=== PATIENT | female | born 1955 | race Caucasian/White ===

== ENCOUNTER 2020-09-01 00:35 | Emergency (ER) | payer OTHER ==
[~2020-09-01 00:35] MED LIST: ABILIFY10 MG PO; ACETAMINOPHEN325 MG PO; ALDACTONE25 MG PO; AMARYL 2MG TABLE2 MG PO; ASPIRIN EC81 M1 PO; ATORVASTATIN CA20 MG PO; BREO ELLIPTA 11 EACH INH; CARVEDILOL6.25 MG PO; CITALOPRAM 40MG40 MG PO; COZAAR 25MG TAB25 MG PO; CYMBALTA 30MG C30 MG PO; FEOSOL325 MG PO; GLIMEPIRIDE4 MG PO; GLUCAGON EMERGEN1 M1 IM; HCTZ12.5 MG PO; IBUPROFEN800 MG PO; LAMOTRIGINE150 MG PO; LINZESS145 MCG PO; MEDROL4 MG PO; MELATONIN5 M2 PO; METFORMIN HCL1000 MG PO; METHADONE10 MG PO; NEURONTIN100 MG PO; NITROSTAT0.4 MG SL; NORVASC 5MG TABL5 MG PO; PEPCID AC20 M1 PO; PERCOCET 5-3251 EACH PO; PREDNISONE10 MG PO; PROTONIX 40MG T40 MG PO; SPIRONOLACTONE25 M1 PO; STOOL SOFTENER1 EACH PO; TRESIBA FL100 UNIT/1 SC; VENTOLIN HFA IN18 GM INH; VITAMIN B-121000 MC1 PO; VITAMIN B-121000 MC4 PO; ZOLOFT 25MG TAB25 MG PO
[2020-09-01 03:08] LABS: BASOPHIL 0.3 % (0-2); EOSINOPHIL 0.3 % (0-7); HCT 25.2 % (37.0-47.0); HGB 7.9 g/dl (12.5-16.0); LYMPHOCYTE 5.7 % (15-48); MCH 27.8 pg (25.0-31.0); MCHC 31.3 g/dL (32.0-36.0); MCV 88.7 fL (78.0-100.0); MONOCYTE 4.9 % (0-12); MPV 8.5 fL (6.0-9.5); NEUTROPHIL 88.2 % (41-80); NRBC 0; PLT 357 K/uL (150-400); RBC 2.84 M/uL (4.20-5.40); RDW 17.5 % (11.5-14.0); WBC 11.6 K/uL (4.0-10.5)
[2020-09-01 03:20] LABS: INR 1.27 (0.9-1.2); PROTHROMBIN TIME 15.1 SECONDS (11.4-13.6); PTT 35.1 SECONDS (22.2-34.7)
[2020-09-01 03:28] LABS: ALBUMIN 2.3 g/dL (3.4-5.0); BILIRUBIN - TOTAL 0.4 mg/dL (0.2-1.0); CREATININE 0.89 mg/dL (0.51-0.95); GLOBULIN (CALCULATION) 4.2 g/dL; POTASSIUM 4.3 mmol/L (3.5-5.1); TOTAL PROTEIN 6.5 g/dL (6.4-8.2)
[2020-09-01 06:30] LABS: BASOPHIL 0.3 % (0-2); EOSINOPHIL 0 % (0-7); HCT 23.8 % (37.0-47.0); HGB 7.5 g/dl (12.5-16.0); LYMPHOCYTE 6.6 % (15-48); MCH 28.2 pg (25.0-31.0); MCHC 31.5 g/dL (32.0-36.0); MCV 89.5 fL (78.0-100.0); MONOCYTE 4.3 % (0-12); MPV 9.2 fL (6.0-9.5); NRBC 0; PLT 366 K/uL (150-400); RBC 2.66 M/uL (4.20-5.40); RDW 17.6 % (11.5-14.0); WBC 11.5 K/uL (4.0-10.5)
[2020-09-01 07:07] LABS: CORONAVIRUS 2019 SARS-COV-2 NEGATIVE (NEGATIVE); INFLUENZA A NAA NEGATIVE (NEGATIVE)
== END 2020-09-01 06:45 | disposition other institution (70) ==
LOC: FER 00:35
PROVIDERS: Student in an Organized Health Care Education/Training Program
DX: K92.0 Hematemesis (principal); I10 Essential (primary) hypertension; E11.9 Type 2 diabetes mellitus without complications; J44.9 Chronic obstructive pulmonary disease, unspecified; K21.9 Gastro-esophageal reflux disease without esophagitis; Z88.0 Allergy status to penicillin; Z88.5 Allergy status to narcotic agent; Z88.8 Allergy status to other drugs, medicaments and biological substances; Z91.048 Other nonmedicinal substance allergy status; Z79.4 Long term (current) use of insulin; Z79.899 Other long term (current) drug therapy; Z20.822 Contact with and (suspected) exposure to COVID-19
CPT/HCPCS: 36415; 71045; 80053; 83690; 85025; 85610; 85730; 86850; 86900; 86901; 86922; 93005; 96365; 96366; 96368; 96375; 96376; C9113; J2354; J2405; J7030; U0002

== ENCOUNTER 2021-05-17 11:32 | Emergency (ER) | payer MEDICARE, OTHER | END 2021-05-17 16:20 | disposition home or self-care (01) | LOC: FER 11:32 | DX: K21.9 Gastro-esophageal reflux disease without esophagitis (principal); R07.89 Other chest pain; I10 Essential (primary) hypertension; E11.9 Type 2 diabetes mellitus without complications; F17.290 Nicotine dependence, other tobacco product, uncomplicated; Z88.0 Allergy status to penicillin; Z88.5 Allergy status to narcotic agent; Z88.8 Allergy status to other drugs, medicaments and biological substances ==

== ENCOUNTER 2021-12-08 00:10 | Inpatient (IN) | payer MEDICARE, OTHER ==
[~2021-12-08] VITALS: Ht 170.2 cm; Wt 95.4 kg
[~2021-12-08 00:10] MED LIST changes: +CARAFATE S500 MG/TSP PO
[2021-12-08 01:03] LABS: BASOPHIL 0.3 % (0-2); EOSINOPHIL 1.3 % (0-7); HCT 35.5 % (37.0-47.0); HGB 11.1 g/dl (12.5-16.0); LYMPHOCYTE 17.1 % (15-48); MCH 27.1 pg (25.0-31.0); MCHC 31.3 g/dL (32.0-36.0); MCV 86.6 fL (78.0-100.0); MONOCYTE 6.8 % (0-12); MPV 9.6 fL (6.0-9.5); NRBC 0; PLT 386 K/uL (150-400); RDW 15.5 % (11.5-14.0); WBC 15.1 K/uL (4.0-10.5)
[2021-12-08 01:25] LABS: ALBUMIN 2.8 g/dL (3.4-5.0); BILIRUBIN - TOTAL 0.3 mg/dL (0.2-1.0); BUN/CREAT RATIO (CALC) 15.6 RATIO; CREATININE 0.96 mg/dL (0.51-0.95); GLOBULIN (CALCULATION) 4.4 g/dL; POTASSIUM 3.7 mmol/L (3.5-5.1); TOTAL PROTEIN 7.2 g/dL (6.4-8.2)
[2021-12-08 01:51] LABS: BILIRUBIN NEGATIVE (NEGATIVE); BLOOD NEGATIVE Ery/uL (NEGATIVE); CLARITY CLEAR (CLEAR); COLOR YELLOW (YELLOW); GLUCOSE (U) NORMAL (NORMAL); LEUKOCYTES 1+ Leu/uL (NEGATIVE); NITRITE POSITIVE (NEGATIVE); PROTEIN NEGATIVE (NEGATIVE); UROBILINOGEN 0.2 mg/dL (0.2-1.0)
[2021-12-08 01:58] LABS: BACTERIA 3+; SQUAMOUS EPITHELIAL CELLS RARE
--- NOTE | 2021-12-08 18:38 | NUR ---
Order received for midine. Risks and benefits explained for midline placement. Verbalized understanding. Time Out completed with Alina Villareal RN. Patients right upper arm vein visualized using the [employer]. The site was marked with a surgical marker. The patient was draped and prepped in sterile fashion. The area was then numbed with 1 cc of 1 % Lidocaine. Time was given for Lidocaine to take effect. A 21 gauge needle was used to access the vein guided by the [employer] ultrasound. Blood return noted. The guide wire was advanced through the needle into the vein. The needle was removed and the tourniquet released. The midline was inserted over the guide wire into the vein. The wire was removed and the midline noted with blood return and flushed with several normal saline flushes. A sterile dressing was placed. Report given to Manuel Pickard RN.
[2021-12-09 06:09] LABS: BASOPHIL 0.2 % (0-2); EOSINOPHIL 2.6 % (0-7); HCT 35.6 % (37.0-47.0); HGB 11.2 g/dl (12.5-16.0); LYMPHOCYTE 11.2 % (15-48); MCH 27.3 pg (25.0-31.0); MCHC 31.5 g/dL (32.0-36.0); MCV 86.6 fL (78.0-100.0); MPV 9.3 fL (6.0-9.5); NEUTROPHIL 75.9 % (41-80); NRBC 0; PLT 336 K/uL (150-400); RBC 4.11 M/uL (4.20-5.40); RDW 15.6 % (11.5-14.0); WBC 13.9 K/uL (4.0-10.5)
[2021-12-09 06:35] LABS: INR 1.14 (0.9-1.2)
[2021-12-09 06:36] LABS: PTT 34.8 SECONDS (24.4-34.7)
[2021-12-09 08:05] LABS: BUN/CREAT RATIO (CALC) 13.4 RATIO; CREATININE 0.82 mg/dL (0.51-0.95)
[2021-12-10 06:23] LABS: BASOPHIL 0.1 % (0-2); EOSINOPHIL 0 % (0-7); HCT 31.1 % (37.0-47.0); HGB 9.5 g/dl (12.5-16.0); LYMPHOCYTE 3.7 % (15-48); MCH 27.4 pg (25.0-31.0); MCHC 30.5 g/dL (32.0-36.0); MCV 89.6 fL (78.0-100.0); MONOCYTE 5.3 % (0-12); MPV 9.9 fL (6.0-9.5); NEUTROPHIL 89.6 % (41-80); NRBC 0; PLT 288 K/uL (150-400); RBC 3.47 M/uL (4.20-5.40); RDW 15.5 % (11.5-14.0)
[2021-12-10 06:37] LABS: WBC 27.9 K/uL (4.0-10.5)
[2021-12-10 07:28] LABS: BUN/CREAT RATIO (CALC) 18.4 RATIO; CREATININE 0.98 mg/dL (0.51-0.95); MAGNESIUM 1.7 mg/dL (1.8-2.4); POTASSIUM 5.1 mmol/L (3.5-5.1)
--- NOTE | 2021-12-10 10:13 | NUR ---
MET WITH PT. SHE RESIDES WITH HER SPOUSE. SHE HAS A ROLLTOR AND 3/. SHE ALSO HAS HOME O2 AT 2L. SHE USES THE O2 AT NIGHT AND DURING THE DAY NEEDED. SHE HAS A PORTABLE SHE WILL USE TO GO HOME. PT. REQUESTED [facility]. CHOICE FORM SIGNED AND COPY GIVEN.
[2021-12-10] MEDS ORDERED: FEOSOL325 MG PO (15:01)
[2021-12-10] MEDS ORDERED: ASPIRIN81 MG PO (15:01)
== END 2021-12-10 16:30 | disposition home health service (06) | DRG 522 ==
LOC: FER 00:10 → FMS 02:59
PROVIDERS: Internal Medicine; Nurse Practitioner; Orthopaedic Surgery; ADMIT Internal Medicine
PROC: 0T9B70Z Drainage of Bladder with Drainage Device, Via Natural or Artificial Opening (ICD-10-PCS; 2021-12-08)
PROC: B24BZZZ Ultrasonography of Heart with Aorta (ICD-10-PCS; 2021-12-08)
PROC: 05HY33Z Insertion of Infusion Device into Upper Vein, Percutaneous Approach (ICD-10-PCS; 2021-12-08)
PROC: 0SRB0JA Replacement of Left Hip Joint with Synthetic Substitute, Uncemented, Open Approach (ICD-10-PCS; principal; 2021-12-09 11:45)
DX: S72.002A Fracture of unspecified part of neck of left femur, initial encounter for closed fracture (principal); N30.00 Acute cystitis without hematuria; I50.32 Chronic diastolic (congestive) heart failure; G89.4 Chronic pain syndrome; Z20.822 Contact with and (suspected) exposure to COVID-19; E11.9 Type 2 diabetes mellitus without complications; J44.9 Chronic obstructive pulmonary disease, unspecified; I11.0 Hypertensive heart disease with heart failure; W01.0XXA Fall on same level from slipping, tripping and stumbling without subsequent striking against object, initial encounter; I95.9 Hypotension, unspecified; K21.9 Gastro-esophageal reflux disease without esophagitis; F31.9 Bipolar disorder, unspecified; E78.5 Hyperlipidemia, unspecified; M25.512 Pain in left shoulder; E66.01 Morbid (severe) obesity due to excess calories; F41.9 Anxiety disorder, unspecified; F17.290 Nicotine dependence, other tobacco product, uncomplicated; Z99.81 Dependence on supplemental oxygen; Z88.0 Allergy status to penicillin; Z88.5 Allergy status to narcotic agent; Z88.8 Allergy status to other drugs, medicaments and biological substances; Z90.49 Acquired absence of other specified parts of digestive tract; Z98.51 Tubal ligation status; Z82.49 Family history of ischemic heart disease and other diseases of the circulatory system; Z68.32 Body mass index [BMI] 32.0-32.9, adult
CPT/HCPCS: 36415; 70450; 71045; 73501; 76000; 80048; 80053; 81001; 83036; 83735; 83880; 84484; 85025; 85610; 85730; 86850; 86900; 86901; 87076; 87088; 87186; 93005; 94010; 94640; 96372; 96374; 96375; 97110; 97162; 97166; 97530; 97530-GP; C1776; J0171; J1100; J1170; J1885; J2060; J2185; J2250; J2405; J2704; J2795; J3010; J7120; U0002

== ENCOUNTER 2022-02-26 13:01 | Inpatient (IN) | payer MEDICARE, OTHER ==
[~2022-02-26] VITALS: Ht 170 cm; Wt 88.0 kg
[~2022-02-26 13:01] MED LIST changes: +ASPIRIN81 MG PO
[2022-02-26 14:45] LABS: BASOPHIL 0.2 % (0-2); EOSINOPHIL 1.7 % (0-7); HCT 39.4 % (37.0-47.0); LYMPHOCYTE 16.3 % (15-48); MCHC 30.5 g/dL (32.0-36.0); MCV 88.7 fL (78.0-100.0); MONOCYTE 7.6 % (0-12); MPV 10.1 fL (6.0-9.5); NEUTROPHIL 73.8 % (41-80); NRBC 0; PLT 400 K/uL (150-400); RBC 4.44 M/uL (4.20-5.40); RDW 16.6 % (11.5-14.0); WBC 11.5 K/uL (4.0-10.5)
[2022-02-26 15:01] LABS: ALBUMIN 2.9 g/dL (3.4-5.0); BILIRUBIN - TOTAL 0.3 mg/dL (0.2-1.0); BUN/CREAT RATIO (CALC) 9.8 RATIO; CREATININE 0.82 mg/dL (0.51-0.95); GLOBULIN (CALCULATION) 4.4 g/dL; POTASSIUM 4.3 mmol/L (3.5-5.1); TOTAL PROTEIN 7.3 g/dL (6.4-8.2)
[2022-02-26 15:52] LABS: CORONAVIRUS 2019 SARS-COV-2 NEGATIVE (NEGATIVE); INFLUENZA A NAA NEGATIVE (NEGATIVE)
[2022-02-26 16:28] LABS: BILIRUBIN NEGATIVE (NEGATIVE); BLOOD NEGATIVE Ery/uL (NEGATIVE); CLARITY CLEAR (CLEAR); COLOR YELLOW (YELLOW); GLUCOSE (U) NORMAL (NORMAL); LEUKOCYTES NEGATIVE Leu/uL (NEGATIVE); NITRITE NEGATIVE (NEGATIVE); PROTEIN NEGATIVE (NEGATIVE); SPECIFIC GRAVITY 1.015 (1.001-1.030); UROBILINOGEN 0.2 mg/dL (0.2-1.0); pH 8.5 (5.0-9.0)
[2022-02-27 05:54] LABS: RETICULOCYTE COUNT 1.8 % (1.0-2.0)
[2022-02-27 06:33] LABS: IRON % SATURATION 27.5 %SAT (20-50)
[2022-02-27 06:44] LABS: BUN/CREAT RATIO (CALC) 9.3 RATIO; C-REACTIVE PROTEIN 1.3 mg/dL (<=0.90); CREATININE 0.97 mg/dL (0.51-0.95); POTASSIUM 3.9 mmol/L (3.5-5.1)
[2022-02-27 06:48] LABS: INR 1.06 (0.9-1.2); PROTHROMBIN TIME 13.5 SECONDS (11.9-13.9)
[2022-02-28 03:48] LABS: BASOPHIL 0.1 % (0-2); EOSINOPHIL 0.1 % (0-7); HCT 34.8 % (37.0-47.0); HGB 11.1 g/dl (12.5-16.0); LYMPHOCYTE 3.7 % (15-48); MCH 27.7 pg (25.0-31.0); MCHC 31.9 g/dL (32.0-36.0); MCV 86.8 fL (78.0-100.0); MONOCYTE 5.9 % (0-12); MPV 9.5 fL (6.0-9.5); NEUTROPHIL 89.6 % (41-80); NRBC 0; PLT 339 K/uL (150-400); RBC 4.01 M/uL (4.20-5.40); RDW 16.8 % (11.5-14.0)
[2022-02-28 03:58] LABS: WBC 27.4 K/uL (4.0-10.5)
[2022-02-28 04:11] LABS: CREATININE 0.92 mg/dL (0.51-0.95); POTASSIUM 4.1 mmol/L (3.5-5.1)
[2022-03-01 07:11] LABS: MAGNESIUM 1.5 mg/dL (1.8-2.4); PHOSPHORUS 2.4 mg/dL (2.6-4.7)
[2022-03-02 05:50] LABS: BASOPHIL 0.1 % (0-2); EOSINOPHIL 1.1 % (0-7); HCT 29.1 % (37.0-47.0); LYMPHOCYTE 8.1 % (15-48); MCH 27.1 pg (25.0-31.0); MCHC 30.9 g/dL (32.0-36.0); MCV 87.7 fL (78.0-100.0); MONOCYTE 8.7 % (0-12); MPV 10.4 fL (6.0-9.5); NEUTROPHIL 81.2 % (41-80); NRBC 0; PLT 237 K/uL (150-400); RBC 3.32 M/uL (4.20-5.40); RDW 16.5 % (11.5-14.0)
[2022-03-02 06:03] LABS: INR 1.25 (0.9-1.2); PROTHROMBIN TIME 15.3 SECONDS (11.9-13.9)
[2022-03-02 06:04] LABS: PTT 46.4 SECONDS (24.9-34.6)
[2022-03-02 06:16] LABS: ALBUMIN 1.7 g/dL (3.4-5.0); BILIRUBIN - TOTAL 0.4 mg/dL (0.2-1.0); BUN/CREAT RATIO (CALC) 16.7 RATIO; CREATININE 0.66 mg/dL (0.51-0.95); MAGNESIUM 1.8 mg/dL (1.8-2.4); POTASSIUM 4.2 mmol/L (3.5-5.1); TOTAL PROTEIN 5.7 g/dL (6.4-8.2)
== END 2022-03-04 00:10 | disposition other institution (70) | DRG 177 ==
LOC: FER 13:01 → FMS 17:29
PROVIDERS: Nurse Practitioner Acute Care; Nurse Practitioner Family; ADMIT Internal Medicine
PROC: 0DC28ZZ Extirpation of Matter from Middle Esophagus, Via Natural or Artificial Opening Endoscopic (ICD-10-PCS; 2022-02-27)
PROC: 02HV33Z Insertion of Infusion Device into Superior Vena Cava, Percutaneous Approach (ICD-10-PCS; principal; 2022-03-01)
PROC: 3E0436Z Introduction of Nutritional Substance into Central Vein, Percutaneous Approach (ICD-10-PCS; 2022-03-01)
DX: J69.0 Pneumonitis due to inhalation of food and vomit (principal); E43 Unspecified severe protein-calorie malnutrition; I50.32 Chronic diastolic (congestive) heart failure; T18.128A Food in esophagus causing other injury, initial encounter; K22.0 Achalasia of cardia; E11.43 Type 2 diabetes mellitus with diabetic autonomic (poly)neuropathy; K31.84 Gastroparesis; F31.9 Bipolar disorder, unspecified; G89.29 Other chronic pain; I25.10 Atherosclerotic heart disease of native coronary artery without angina pectoris; Z20.822 Contact with and (suspected) exposure to COVID-19; I11.0 Hypertensive heart disease with heart failure; J44.9 Chronic obstructive pulmonary disease, unspecified; E11.40 Type 2 diabetes mellitus with diabetic neuropathy, unspecified; K21.9 Gastro-esophageal reflux disease without esophagitis; E78.5 Hyperlipidemia, unspecified; K58.1 Irritable bowel syndrome with constipation; E66.9 Obesity, unspecified; F41.9 Anxiety disorder, unspecified; D50.9 Iron deficiency anemia, unspecified; M51.36 Other intervertebral disc degeneration, lumbar region; M19.90 Unspecified osteoarthritis, unspecified site; K44.9 Diaphragmatic hernia without obstruction or gangrene; K22.89 Other specified disease of esophagus; R91.8 Other nonspecific abnormal finding of lung field; Z88.0 Allergy status to penicillin; I25.2 Old myocardial infarction; Z86.16 Personal history of COVID-19; Z99.81 Dependence on supplemental oxygen; Z88.5 Allergy status to narcotic agent; Z90.49 Acquired absence of other specified parts of digestive tract; Z90.710 Acquired absence of both cervix and uterus; Z79.82 Long term (current) use of aspirin; Z82.49 Family history of ischemic heart disease and other diseases of the circulatory system; Z79.899 Other long term (current) drug therapy; Z87.891 Personal history of nicotine dependence; Z68.30 Body mass index [BMI] 30.0-30.9, adult
CPT/HCPCS: 36415; 71045; 71250; 80048; 80053; 81003; 82150; 83036; 83540; 83550; 83690; 83735; 84100; 84134; 84443; 84478; 84484; 85025; 85610; 85730; 86140; 93005; 94640; 94664; 94760; C1751; C9113; G0378; J0780; J1642; J1650; J2185; J2270; J2405; J2704; J2765; J3475; J3480; J7030; J7050; J7120; Q9967; U0002